=== PATIENT | male | born 1955 | race Two or more races ===

== ENCOUNTER → 2020-06-22 | Outpatient (CLI) | payer OTHER ==
[~2020-06-22] MED LIST: ALLO300T PO; LOSA25TA25 PO; SIMV10TA18 PO; TAMS-11 PO; [UNRECOGNIZED DRUG - CODE] PO
== END | disposition home or self-care (01) ==
LOC: STAR 12:24
PROVIDERS: ATTEND Internal Medicine Geriatric Medicine
DX: Z01.818 Encounter for other preprocedural examination (principal); K31.89 Other diseases of stomach and duodenum; R94.31 Abnormal electrocardiogram [ECG] [EKG]; I25.89 Other forms of chronic ischemic heart disease; Z20.822 Contact with and (suspected) exposure to COVID-19
CPT/HCPCS: 93005; U0003

== ENCOUNTER 2020-06-26 10:33 | Day surgery (SDC) | payer OTHER ==
[~2020-06-26] VITALS: Ht 170.2 cm; Wt 71.2 kg
[2020-06-26 11:20] VITALS: BP 155/81
[2020-06-26] MEDS ORDERED: LACTATED RINGERS 1,000 ML IV SCH (11:30)
[2020-06-26] MEDS ORDERED: CHLORHEXIDINE 15 ML UDC PO ONE (11:30)
[2020-06-26 11:59] LABS: ALANINE AMINOTRANSFERASE 38 U/L (12-78); ALBUMIN 4.2 g/dL (3.4-5.0); ANION GAP 6 mmol/L (5-15); CALCIUM 8.9 mg/dL (8.5-10.1); CHLORIDE 109 mmol/L (98-107)
[2020-06-26 12:02] LABS: ALKALINE PHOSPHATASE 75 U/L (45-117); BILIRUBIN,TOTAL 0.6 mg/dL (0.2-1.0); CREATININE 1.15 mg/dL (0.7-1.3); TOTAL PROTEIN 8.2 g/dL (6.4-8.2)
[2020-06-26] MEDS ORDERED: MIDAZOLAM 1 MG/ML, 2ML ONE (12:53)
[2020-06-26] MEDS ORDERED: FENTANYL PF 100 MCG/2ML ONE (12:53)
[2020-06-26] MEDS ORDERED: DIAZEPAM 5 MG/ML, 2ML IVPush PRN (13:00)
[2020-06-26] MEDS ORDERED: EPHEDRINE 50 MG/ML, 1ML IVPush PRN (13:00)
[2020-06-26] MEDS ORDERED: ONDANSETRON 2MG/ML, 2ML IVPush PRN (13:00)
[2020-06-26] MEDS ORDERED: DIPHENHYDRAMINE 50 MG/ML, 1ML IVPush PRN (13:00)
[2020-06-26] MEDS ORDERED: HYDROmorphone 1 MG/ML, 1ML INJ IVPush PRN (13:00)
[2020-06-26] MEDS ORDERED: METOPROLOL 1 MG/ML, 5ML IV PRN (13:00)
[2020-06-26] MEDS ORDERED: METOCLOPRAMIDE 5 MG/ML, 2ML IVPush PRN (13:00)
[2020-06-26] MEDS ORDERED: FENTANYL PF 100 MCG/2ML IV PRN (13:00)
[2020-06-26] MEDS ORDERED: OXYcodone 5 MG/5 ML ORAL.SOL UDC PO PRN (13:00)
[2020-06-26] MEDS ORDERED: LABETALOL 5MG/ML, 20ML IV PRN (13:00)
[2020-06-26] MEDS ORDERED: HALOPERIDOL 5 MG/ML IV PRN (13:00)
[2020-06-26] MEDS ORDERED: hydrALAzine 20 MG/ML, 1ML IV PRN (13:00)
[2020-06-26] MEDS ORDERED: ACETAMINOPHEN 325 MG TABLET PO PRN (13:00)
[2020-06-26] MEDS ORDERED: PROMETHAZINE 25 MG/ML, 1ML IVPush PRN (13:00)
[2020-06-26] MEDS ORDERED: ONDANSETRON 2MG/ML, 2ML ONE (13:27)
[2020-06-26] MEDS ORDERED: PROPOFOL 10 MG/ML, 20ML ONE (13:27)
== END 2020-06-26 15:15 | disposition home or self-care (01) ==
LOC: OUT 10:33
PROVIDERS: ATTEND Internal Medicine Geriatric Medicine
DX: R13.10 Dysphagia, unspecified (principal); K31.9 Disease of stomach and duodenum, unspecified; I10 Essential (primary) hypertension; M19.90 Unspecified osteoarthritis, unspecified site; Z91.011 Allergy to milk products; Z91.040 Latex allergy status
CPT/HCPCS: 36415; 43248; 43259; 80053; J2250; J2405; J2704; J3010; J7120